=== PATIENT | male | born 1965 | race Caucasian/White ===

== ENCOUNTER 2024-07-01 23:55 | Emergency (ER) | payer OTHER ==
[~2024-07-01] VITALS: Ht 193 cm; Wt 108.9 kg
[2024-07-02 00:10] VITALS: TEMP 98.9
[2024-07-02 00:26] LABS: BASOPHILS # (AUTO) 0.1 (0.0-0.1); BASOPHILS % 0.7 % (0.0-1.0); EOSINOPHILS # (AUTO) 0.2 (0.0-0.4); EOSINOPHILS % 2.9 % (0.0-6.0); HEMATOCRIT 32.8 % (38.2-49.6); HEMOGLOBIN 11.8 g/dL (14.0-18.0); LYMPHOCYTES # (AUTO) 1.4 (1.0-3.2); LYMPHOCYTES % 16.1 % (18.0-39.1); MEAN CORPUSCULAR HEMOGLOBIN 29.2 pg (28-32); MEAN CORPUSCULAR VOLUME 81.2 fL (81-99); MONOCYTES # (AUTO) 0.7 (0.2-0.8); MONOCYTES % 7.7 % (4.4-11.3); NEUTROPHILS # (AUTO) 6.1 (2.1-6.9); NEUTROPHILS % 72.1 % (38.7-80.0); PLATELET COUNT 96 x10e3/uL (140-360); RED BLOOD COUNT 4.04 x10e6/uL (4.3-5.7); RED CELL DISTRIBUTION WIDTH 14.6 % (11.7-14.4); WHITE BLOOD COUNT 8.41 x10e3/uL (4.8-10.8)
[2024-07-02] MEDS: ORPHENADRINE CITRATE 30 MG/ML VIAL IM ONE (00:33)
[2024-07-02] MEDS: KETOROLAC TROMETHAMINE 30 MG/ML VIAL IV STA (00:33)
[2024-07-02 01:30] LABS: ANION GAP 14.1 mmol/L (8-16); CREATININE, SERUM 2.08 mg/dL (0.72-1.25); POTASSIUM 4.1 mmol/L (3.5-5.1)
[2024-07-02 01:32] LABS: CREATINE KINASE 101 IU/L (30-200)
[2024-07-02 01:39] LABS: TROPONIN I < 0.001 ng/mL (0-0.300)
[2024-07-02] MEDS: SODIUM CHLORIDE 0.9% 1000ML 1,000 ML IV ONE (01:57)
[2024-07-02] MEDS: HYDROCODONE/APAP 10MG-325MG TAB PO ONE (02:53)
[2024-07-02 03:34] LABS: ANION GAP 13.9 mmol/L (8-16); CALCIUM 7.8 mg/dL (8.4-10.2); CREATININE, SERUM 1.91 mg/dL (0.72-1.25); POTASSIUM 3.9 mmol/L (3.5-5.1)
[2024-07-02] MEDS ORDERED: CYCLOBENZAPRINE5 MG PO (04:03)
[2024-07-02] MEDS ORDERED: HYDROCODON-ACE1 EAC9 PO (04:03)
[2024-07-02 04:15] VITALS: PULSE 85; RESP 17; O2SAT 96
== END 2024-07-02 04:45 | disposition home or self-care (01) ==
LOC: ER 07-02 00:06
DX: R07.89 Other chest pain (principal); S29.011A Strain of muscle and tendon of front wall of thorax, initial encounter; I12.9 Hypertensive chronic kidney disease with stage 1 through stage 4 chronic kidney disease, or unspecified chronic kidney disease; E11.22 Type 2 diabetes mellitus with diabetic chronic kidney disease; E11.65 Type 2 diabetes mellitus with hyperglycemia; N18.9 Chronic kidney disease, unspecified; E03.9 Hypothyroidism, unspecified; R94.31 Abnormal electrocardiogram [ECG] [EKG]; Z87.19 Personal history of other diseases of the digestive system
CPT/HCPCS: 36415; 71045; 80048; 82550; 84484; 85025; 93005; 99284; J1885; J2360; J7030

== ENCOUNTER 2024-07-05 03:15 | Emergency (ER) | payer OTHER ==
[~2024-07-05] VITALS: Ht 193 cm; Wt 108.9 kg
[~2024-07-05 03:15] MED LIST: CYCLOBENZAPRINE5 MG PO; HYDROCODON-ACE1 EAC9 PO
[2024-07-05] MEDS ORDERED: SODIUM CHLORIDE FLUSH 10 ML SYR IV PRN (03:30)
[2024-07-05] MEDS: KETOROLAC TROMETHAMINE 30 MG/ML VIAL IV STA (03:51)
[2024-07-05] MEDS: ORPHENADRINE CITRATE 30 MG/ML VIAL IM ONE (03:52)
[2024-07-05 03:57] LABS: BASOPHILS % 0.4 % (0.0-1.0); EOSINOPHILS # (AUTO) 0.1 (0.0-0.4); EOSINOPHILS % 2.5 % (0.0-6.0); HEMATOCRIT 27.6 % (38.2-49.6); LYMPHOCYTES # (AUTO) 1.1 (1.0-3.2); LYMPHOCYTES % 22.5 % (18.0-39.1); MEAN CORPUSCULAR HEMOGLOBIN 29.5 pg (28-32); MEAN CORPUSCULAR HGB CONC 36.2 g/dL (31-35); MEAN CORPUSCULAR VOLUME 81.4 fL (81-99); MONOCYTES # (AUTO) 0.5 (0.2-0.8); NEUTROPHILS # (AUTO) 3.1 (2.1-6.9); PLATELET COUNT 89 x10e3/uL (140-360); RED BLOOD COUNT 3.39 x10e6/uL (4.3-5.7); RED CELL DISTRIBUTION WIDTH 14.9 % (11.7-14.4); WHITE BLOOD COUNT 4.89 x10e3/uL (4.8-10.8)
[2024-07-05] MEDS: SODIUM CHLORIDE 0.9% 1000ML 1,000 ML IV ONE (04:12)
[2024-07-05 04:18] LABS: ALBUMIN 2.5 g/dL (3.5-5.0); ALBUMIN/GLOBULIN RATIO 0.7 (0.8-2.0); ANION GAP 12.8 mmol/L (8-16); BILIRUBIN,TOTAL 0.7 mg/dL (0.2-1.2); CALCIUM 7.8 mg/dL (8.4-10.2); CREATININE, SERUM 1.93 mg/dL (0.72-1.25); POTASSIUM 3.8 mmol/L (3.5-5.1); TOTAL PROTEIN 6.1 g/dL (6.5-8.1)
[2024-07-05 04:25] LABS: TROPONIN I 0.011 ng/mL (0-0.300)
[2024-07-05 11:41] LABS: AMPHETAMINES SCREEN,URINE POSITIVE (NEGATIVE); BENZODIAZEPINES SCREEN,URINE NEGATIVE (NEGATIVE); OPIATES SCREEN,URINE NEGATIVE (NEGATIVE); PHENCYCLIDINE SCREEN,URINE NEGATIVE (NEGATIVE)
[2024-07-05 11:42] LABS: CANNABINOIDS SCREEN,URINE POSITIVE (NEGATIVE); COCAINE SCREEN,URINE NEGATIVE (NEGATIVE); METHADONE SCREEN, URINE NEGATIVE (NEGATIVE)
[2024-07-05 13:22] VITALS: PULSE 70; RESP 16; TEMP 98; O2SAT 95
[2024-07-05] MEDS ORDERED: NAPROXEN250 MG PO (14:58)
== END 2024-07-05 16:17 | disposition home or self-care (01) ==
LOC: ER 03:20
DX: M62.838 Other muscle spasm (principal); F15.10 Other stimulant abuse, uncomplicated; I10 Essential (primary) hypertension; E11.65 Type 2 diabetes mellitus with hyperglycemia; E03.9 Hypothyroidism, unspecified; K76.9 Liver disease, unspecified
CPT/HCPCS: 36415; 71045; 71250; 80053; 80307; 82550; 84484; 85025; 93005; 94760; 99284; J1885; J2360; J7030